=== PATIENT | female | born 1980 | race Caucasian/White ===

== ENCOUNTER 2017-11-10 08:34 | Emergency (ER) | payer SELFPAY, OTHER ==
[2017-11-10 08:48] LABS: URINE HCG POC HCG NEGATIVE (Negative)
[2017-11-10] MEDS: KETOROLAC 30 MG/ML INJ. IV (09:00)
[2017-11-10 09:02] LABS: ADD MAN DIFF? NO
[2017-11-10 09:08] LABS: BASO # 0.1 x10^3/uL (0.0-0.2); BASO % 1 % (0-3); EOS # 0.1 x10^3/uL (0.0-0.7); EOS % 1 % (0-3); HEMOGLOBIN 12.4 g/dL (12.0-15.5); LYMPH # 1.1 x10^3/uL (1.0-4.8); LYMPH % 10 % (24-48); MEAN CORPUSCULAR HEMOGLOBIN 30 pg (25-35); MEAN CORPUSCULAR HGB CONC 33 g/dL (31-37); MEAN CORPUSCULAR VOLUME 89 fL (79-100); MONO # 0.9 x10^3/uL (0.0-1.1); MONO % 8 % (0-9); NEUT # 9.5 x10^3uL (1.8-7.7); NEUT % 82 % (31-73); PLATELET COUNT 187 x10^3/uL (140-400); RED BLOOD COUNT 4.15 x10^6/uL (3.50-5.40); RED CELL DISTRIBUTION WIDTH 12.8 % (11.5-14.5); WHITE BLOOD COUNT 11.6 x10^3/uL (4.0-11.0)
[2017-11-10 09:18] LABS: BILIRUBIN,URINE NEGATIVE (NEG); CLARITY,URINE CLOUDY; COLOR,URINE YELLOW; GLUCOSE,URINE NEGATIVE (NEG); NITRITE,URINE POSITIVE (NEG); PH,URINE 5.5; PROTEIN,URINE 100 mg/dL (NEG-TRACE); UROBILINOGEN,URINE 0.2 mg/dL (0.2 mg/dL)
[2017-11-10 09:29] LABS: BACTERIA,URINE MANY /HPF (0-FEW); RBC,URINE TNTC /HPF (0-2); SQUAMOUS EPITHELIAL CELL,UR MOD /LPF; WBC,URINE TNTC /HPF (0-4)
[2017-11-10 09:31] LABS: ANION GAP 12 (6-14); BLOOD UREA NITROGEN 11 mg/dL (7-20); BUN/CREATININE RATIO 12 (6-20); CALCIUM 8.4 mg/dL (8.5-10.1); CARBON DIOXIDE 25 mmol/L (21-32); CHLORIDE 103 mmol/L (98-107); CREATININE 0.9 mg/dL (0.6-1.0); GFR 71.7; GLUCOSE 99 mg/dL (70-99); POTASSIUM 3.7 mmol/L (3.5-5.1); SODIUM 140 mmol/L (136-145)
[2017-11-10 09:37] LABS: ALBUMIN 3.6 g/dL (3.4-5.0); ALBUMIN/GLOBULIN RATIO 1.1 (1.0-1.7); ALK PHOS 60 U/L (46-116); ALT (SGPT) 9 U/L (14-59); AST (SGOT) 11 U/L (15-37); TOTAL BILIRUBIN 0.7 mg/dL (0.2-1.0)
== END 2017-11-10 10:55 | disposition home or self-care (01) ==
LOC: ER 08:34
DX: N39.0 Urinary tract infection, site not specified (principal)
CPT/HCPCS: 36415; 80053; 81001; 81025; 85025; 87086; 87186; 96365; 96375; 99284-25; J0690; J1885

== ENCOUNTER 2019-02-02 19:21 | Emergency (ER) | payer OTHER ==
[~2019-02-02] VITALS: Ht 170.2 cm; Wt 48.5 kg
[~2019-02-02 19:21] MED LIST: SULF1TAB24 PO
[2019-02-02 19:25] VITALS: BP 115/70
--- NOTE | 2019-02-02 20:13 | PHYS DOC ---
Past Medical History Past Medical History: No Pertinent History Past Surgical History: Tubal ligation Smoking: Cigarettes Alcohol Use: None Drug Use: None Adult General Chief Complaint Chief Complaint: UPPER EXTREMITY PAIN HPI HPI Patient is a 38 year old left arm pain for two days. Patient states the pain is intermittent and she is unable to pinpoint any actions that caused the pain to occur. Reports a pressure sensation in her upper arm with tingling into her hand. The tingling encompasses all her fingers. She rates the pain a 4 out of 10. She he has not attempted anything at home to relieve the pain. Patient reports waking up last night with neck pain and tightness. She denies any chest pain, shortness of breath, lightheadedness, hemoptysis, unilateral leg swelling or cough. Patient does report a significant family history of cardiac disease. Denies known trauma. Review of Systems Review of Systems Constitutional: Denies fever or chills [] Eyes: Denies redness or eye pain [] HENT: Denies nasal congestion or sore throat [] Respiratory: Denies cough or shortness of breath [] Cardiovascular: Denies chest pain or palpitations[] GI: Denies abdominal pain, nausea, vomiting. [] : Denies dysuria or hematuria [] Musculoskeletal: Reports neck, back, and left arm pain and left hand tingling off all five fingers. [] Integument: Denies rash or skin lesions [] Neurologic: Reports left hand tingling, denies headache or focal weakness[] Complete systems were reviewed and found to be within normal limits, except as documented in this note. Current Medications Current Medications Current Medications Medications (Trade) Dose Ordered Sig/[facility] Start Time Stop Time Status Last Admin Dose Admin Dexamethasone (Decadron) 10 mg 1X ONCE 02/02/19 20:15 02/02/19 20:16 DC 02/02/19 20:22 10 MG Allergies Allergies Allergies Coded Allergies Type Severity Reaction Last Updated Verified No Known Drug Allergies 11/10/17 No Physical Exam Physical Exam Constitutional: Well developed, well nourished, no acute distress. [] HENT: Normocephalic, atraumatic, bilateral external ears normal. [] Eyes: EOMI, conjunctiva normal, no discharge. [] Neck: Tightness with neck flexion, no tenderness, supple, no meningeal signs. [ ] Cardiovascular:Heart rate regular rhythm, no murmur [] Lungs & Thorax: Bilateral breath sounds clear to auscultation [] Abdomen: Soft, no tenderness. [] Skin: Warm, dry, no erythema, no rash. [] Back: No tenderness, no CVA tenderness. [] Extremities: No tenderness, no cyanosis, no clubbing, ROM intact, no edema. [] Neurologic: Alert and oriented X 3, normal motor function, normal sensory function. [] Psychologic: Affect normal, mood normal. [] Current Patient Data Vital Signs Vital Signs Date Time Temp Pulse Resp B/P (MAP) Pulse Ox O2 Delivery O2 Flow Rate FiO2 02/02/19 19:25 98.5 108 16 115/70 (85) 99 Room Air 98.5 Lab Values Laboratory Tests Test 02/02/19 20:17 Troponin I Quantitative < 0.017 ng/mL (0.000-0.055) EKG EKG EKG at 2019 showed normal sinus rhythm with rate of [address] elevation[] Radiology/Procedures Radiology/Procedures [] Course & Med Decision Making Course & Med Decision Making 38-year-old female presenting to the emergency department with left arm pain in tingling. Pain is intermittent and she was not rating pain while in the emergency department. On exam there is some muscle tightness in her neck with flexion. No meningeal signs are noted. Labs obtained and posted to chart. Due to family history of cardiac disease a screening EKG and troponin were obtained. Troponin was negative. EKG showed no STEMI or signs of infarction. HEART score 1. HPI and physical exam more consistent for cervical radiculopathy. Patient stable for discharge with outpatient follow-up with PCP/pain management. Pain management referral provided. Discussed findings and plan with patient and family, who acknowledge understanding and agreement. [] Dragon Disclaimer Dragon Disclaimer This electronic medical record was generated, in whole or in part, using a voice recognition dictation system. Departure Departure Impression: Primary Impression: Cervical radiculopathy Disposition: HOME, SELF-CARE Condition: STABLE Referrals: NO PCP (PCP) PROSPER GILLIS MD Patient Instructions: Cervical Radiculopathy, [id number] Scripts Orphenadrine Citrate (ORPHENADRINE CITRATE) 100 Mg Tablet.er 1 TAB PO BID PRN for MUSCLE PAIN, #14 TAB 0 Refills Prov: SAPNA FUENTES DO 02/02/19 Prednisone (PREDNISONE) 20 Mg Tablet 2 TAB PO DAILY for 4 Days, #8 TAB Please start first dose of medication tomorrow, Saturday 02/03 Prov: SAPNA FUENTES DO 02/02/19 SAPNA FUENTES DO Feb 02, 2019 20:13
[2019-02-02] MEDS ORDERED: DEXAMETHASONE 4 MG TABLET PO ONE (20:15)
[2019-02-02] MEDS ORDERED: ORPH100T PO (20:55)
[2019-02-02] MEDS ORDERED: PRED20TA PO (20:55)
--- NOTE | 2019-02-03 08:28 | EKG ---
[facility] [address] [place] [address] Test Date: 2019-02-02 Test Time: 20:20:41 Pat Name: EMRE MAKI Department: Room: Gender: F [employer]: : 1980 Requested By: SAPNA FUENTES Order Number: [id number] Reading MD: Galen Cooper MD Measurements Intervals Louann Rate: 95 P: 77 MN: 148 QRS: 92 QRSD: 84 T: 51 QT: 340 QTc: 430 Interpretive Statements SR NON-SPECIFIC ST/T CHANGES Electronically Signed On 02-07-2019 9:40:03 CDT by Galen Cooper MD
== END 2019-02-02 21:50 | disposition home or self-care (01) ==
LOC: ER 19:21
DX: M54.12 Radiculopathy, cervical region (principal); F17.210 Nicotine dependence, cigarettes, uncomplicated; R94.31 Abnormal electrocardiogram [ECG] [EKG]
CPT/HCPCS: 36415; 84484; 93005; 99284; J8540

== ENCOUNTER 2019-12-05 11:13 | Emergency (ER) | payer OTHER ==
[~2019-12-05] VITALS: Ht 170.2 cm; Wt 50.0 kg
[~2019-12-05 11:13] MED LIST changes: +ORPH100T PO; +PRED20TA PO
[2019-12-05 12:02] LABS: U PREG PATIENT NEGATIVE (NEG)
[2019-12-05] MEDS ORDERED: IV NORMAL SALINE 1000ML BAG 1,000 ML IV SCH (12:07)
[2019-12-05] MEDS ORDERED: KETOROLAC 30 MG/ML VIAL. IV ONE (12:15)
--- NOTE | 2019-12-05 12:16 | PHYS DOC ---
Past Medical History Past Medical History: No Pertinent History Past Surgical History: Tubal ligation Smoking Status: Current Every Day Smoker Alcohol Use: None Drug Use: None Adult General Chief Complaint Chief Complaint: ABDOMINAL PAIN HPI HPI Patient is a 39 year old female without history of medical problem who presents with complaint of abdominal pain. Patient complaining of periumbilical sharp pain without radiation since 2 AM today she woke up to go to the bathroom as a constant pain without nausea and vomiting, fever and chills, urinary symptoms, diarrhea and constipation, vaginal bleeding or discharge, history of the same pain. Patient states the pain was 10 over 10 that improved partially with ibuprofen 800 mg she took at 0200 but increasing to 10 over 10 and again. Review of Systems Review of Systems Constitutional: Denies fever or chills [] Eyes: Denies change in visual acuity, redness, or eye pain [] HENT: Denies nasal congestion or sore throat [] Respiratory: Denies cough or shortness of breath [] Cardiovascular: No additional information not addressed in HPI [] GI: Reports abdominal pain, denies nausea, vomiting, bloody stools or diarrhea [] : Denies dysuria or hematuria [] Musculoskeletal: Denies back pain or joint pain [] Integument: Denies rash or skin lesions [] Neurologic: Denies headache, focal weakness or sensory changes [] Endocrine: Denies polyuria or polydipsia [] All other systems were reviewed and found to be within normal limits, except as documented in this note. Current Medications Current Medications Current Medications Medications (Trade) Dose Ordered Sig/Ron Start Time Stop Time Status Last Admin Dose Admin Ketorolac Tromethamine (Toradol 30mg Vial) 30 mg 1X ONCE 12/05/19 12:15 12/05/19 12:16 DC 12/05/19 12:24 30 MG Sodium Chloride 1,000 ml @ 1,000 mls/hr Q1H 12/05/19 12:07 12/05/19 13:06 DC 12/05/19 12:24 1,000 MLS/HR Allergies Allergies Allergies Coded Allergies Type Severity Reaction Last Updated Verified No Known Drug Allergies 11/10/17 No Physical Exam Physical Exam Constitutional: Well developed, well nourished, mild distress, non-toxic appearance. [] HENT: Normocephalic, atraumatic. Eyes: PERRLA, EOMI, conjunctiva normal, no discharge. [] Neck: Normal range of motion, no tenderness, supple, no stridor. [] Cardiovascular:Heart rate regular rhythm, no murmur [] Lungs & Thorax: Bilateral breath sounds clear to auscultation [] Abdomen: Bowel sounds normal, guarding in per medical area ,soft, no tenderness, no masses, no pulsatile masses. [] Skin: Warm, dry, no erythema, no rash. [] Back: No tenderness, no CVA tenderness. [] Extremities: No tenderness, no cyanosis, no clubbing, ROM intact, no edema. [] Neurologic: Alert and oriented X 3, no focal deficits noted. [] Psychologic: Affect anxious and tearful, judgement normal, mood normal. [] Current Patient Data Vital Signs Vital Signs Date Time Temp Pulse Resp B/P (MAP) Pulse Ox O2 Delivery O2 Flow Rate FiO2 12/05/19 11:53 97.4 74 16 104/63 (77) 95 Room Air 97.4 Lab Values Laboratory Tests Test 12/05/19 11:43 12/05/19 11:47 Urine Collection Type Unknown Urine Color Yellow Urine Clarity Cloudy Urine pH 6.0 Urine Specific Andrews 1.015 Urine Protein Negative mg/dL (NEG-TRACE) Urine Glucose (UA) Negative mg/dL (NEG) Urine Ketones (Stick) Negative mg/dL (NEG) Urine Blood Large (NEG) Urine Nitrite Positive (NEG) Urine Bilirubin Negative (NEG) Urine Urobilinogen Dipstick 1.0 mg/dL (0.2 mg/dL) Urine Leukocyte Esterase Moderate (NEG) Urine RBC 3-5 /HPF (0-2) Urine WBC 5-10 /HPF (0-4) Urine Squamous Epithelial Cells Mod /LPF Urine Bacteria Many /HPF (0-FEW) Urine Mucus Slight /LPF Urine Test Negative (NEG) White Blood Count 8.1 x10^3/uL (4.0-11.0) Red Blood Count 4.47 x10^6/uL (3.50-5.40) Hemoglobin 13.8 g/dL (12.0-15.5) Hematocrit 41.0 % (36.0-47.0) Mean Corpuscular Volume 92 fL (79-100) Mean Corpuscular Hemoglobin 31 pg (25-35) Mean Corpuscular Hemoglobin Concent 34 g/dL (31-37) Red Cell Distribution Width 13.1 % (11.5-14.5) Platelet Count 186 x10^3/uL (140-400) Neutrophils (%) (Auto) 65 % (31-73) Lymphocytes (%) (Auto) 25 % (24-48) Monocytes (%) (Auto) 5 % (0-9) Eosinophils (%) (Auto) 5 % (0-3) H Basophils (%) (Auto) 0 % (0-3) Neutrophils # (Auto) 5.2 x10^3/uL (1.8-7.7) Lymphocytes # (Auto) 2.1 x10^3/uL (1.0-4.8) Monocytes # (Auto) 0.4 x10^3/uL (0.0-1.1) Eosinophils # (Auto) 0.4 x10^3/uL (0.0-0.7) Basophils # (Auto) 0.0 x10^3/uL (0.0-0.2) Sodium Level 137 mmol/L (136-145) Potassium Level 3.6 mmol/L (3.5-5.1) Chloride Level 103 mmol/L (98-107) Carbon Dioxide Level 28 mmol/L (21-32) Anion Gap 6 (6-14) Blood Urea Nitrogen 9 mg/dL (7-20) Creatinine 0.9 mg/dL (0.6-1.0) Estimated GFR (Cockcroft-Gault) 70.5 BUN/Creatinine Ratio 10 (6-20) Glucose Level 108 mg/dL (70-99) H Calcium Level 8.5 mg/dL (8.5-10.1) Total Bilirubin 0.6 mg/dL (0.2-1.0) Aspartate Amino Transferase (AST) 10 U/L (15-37) L Alanine Aminotransferase (ALT) 7 U/L (14-59) L Alkaline Phosphatase 59 U/L (46-116) Total Protein 6.9 g/dL (6.4-8.2) Albumin 3.9 g/dL (3.4-5.0) Albumin/Globulin Ratio 1.3 (1.0-1.7) Lipase 104 U/L (73-393) Laboratory Tests 12/05/19 11:47 Laboratory Tests 12/05/19 11:47 EKG EKG [] Radiology/Procedures Radiology/Procedures [facility] [address] [place] [address] IMAGING REPORT Signed PATIENT: EMRE MAKI ACCOUNT: [id number] : 1980 LOCATION: ER AGE: 39 SEX: F EXAM STATUS: REG ER ORD. PHYSICIAN: SAGRARIO ARNOLD MD REASON: periumbilical pain PROCEDURE: CT ABDOMEN PELVIS WO CONTRAST PQRS Compliance Statement: One or more of the following individualized dose reduction techniques were utilized for this examination: 1. Automated exposure control 2. Adjustment of the mA and/or kV according to patient size 3. Use of iterative reconstruction technique CT ABDOMEN PELVIS WO CONTRAST Clinical Indication: Upper abdominal pain since 2:00 AM. Comparison: None. Technique: Helical CT imaging of the abdomen and pelvis is performed without IV or oral contrast. Findings: Evaluation of solid organs and bowel is limited without oral and IV contrast, decreasing sensitivity for detection of pathology. Calcified granuloma left lower lobe. Cardiac size normal. Probable normal variant Aria lobe. Liver is homogeneous. Gallbladder, spleen, pancreas, adrenal glands, and abdominal aorta caliber are normal. No renal calculus. No hydronephrosis. Stomach unremarkable. No dilated small bowel. The appendix is normal. No colon wall thickening is seen. There is scattered stool in the colon. No abdominal adenopathy or free fluid. Anteverted uterus. Mild pelvic free fluid. Left adnexal cyst measures 4.3 cm. No acute bone abnormality. IMPRESSION: 1. Mild pelvic free fluid. Small left adnexal cyst. Findings may be physiologic. 2. There is otherwise no acute abdominal or pelvic abnormality. Electronically signed by: Zeyad Warren MD (12/05/2019 12:49 PM) [id number] DICTATED and SIGNED BY: ZEYAD WARREN MD DATE: 12/05/19 1249 Course & Med Decision Making Course & Med Decision Making Pertinent Labs and Imaging studies reviewed. (See chart for details) discharge: I've spoken with the patient and/or caregivers. I've explained the patient's condition, diagnosis and treatment plan based on information available to me at this time. I've answered the patient's and/or caregivers questions and addressed any concerns. The patient and/or caregivers have a good understanding the patient's diagnosis, condition and treatment plan as can be expected at this point. Vital signs have been stabilized. The patient's condition is stable for discharge from the emergency department. The patient will pursue further outpatient evaluation with her primary care provider or other designated consulting physician as outlined in the discharge instructions. Patient and/or caregivers are agreeable to this plan of care and follow-up instructions have been explained in detail. The patient and/or caregivers have received these instructions in written format and expressed unde rstanding of these discharge instructions. The patient and her caregivers are aware that if any significant change in condition or worsening of symptoms should prompt him to immediately return to this of the closest emergency department. If an emergent department is not readily available I would en courage him to call 911. [place] Disclaimer Dragon Disclaimer This electronic medical record was generated, in whole or in part, using a voice recognition dictation system. Departure Departure Impression: Primary Impression: Urinary tract infection Additional Impression: Abdominal pain Disposition: HOME, SELF-CARE (at 1359) Condition: IMPROVED Referrals: KATHERINE CANSECO MD (PCP) Patient Instructions: Abdominal Pain, Mittelschmerz, Urinary Tract Infection Additional Instructions: Drink plenty of liquids Follow-up with your primary care physician in 3-5 days Return to ER if not getting better Scripts Tramadol Hcl (ULTRAM) 50 Mg Tablet 50 MG PO Q6HRS PRN for PAIN, #14 TAB 0 Refills Prov: SAGRARIO ARNOLD MD 12/05/19 Ciprofloxacin Hcl (CIPRO) 250 Mg Tablet 1 TAB PO BID for infection, #6 TAB Prov: SAGRARIO ARNOLD MD 12/05/19 Problem Qualifiers Primary Impression: Urinary tract infection Urinary tract infection type: acute cystitis Hematuria presence: with hematuria Qualified Codes: N30.01 - Acute cystitis with hematuria Additional Impression: Abdominal pain Abdominal location: periumbilical Qualified Codes: R10.33 - Periumbilical pain SAGRARIO ARNOLD MD Dec 05, 2019 12:16
[2019-12-05 12:23] LABS: BASO % 0 % (0-3); EOS # 0.4 x10^3/uL (0.0-0.7); EOS % 5 % (0-3); HEMOGLOBIN 13.8 g/dL (12.0-15.5); LYMPH # 2.1 x10^3/uL (1.0-4.8); LYMPH % 25 % (24-48); MEAN CORPUSCULAR HEMOGLOBIN 31 pg (25-35); MEAN CORPUSCULAR HGB CONC 34 g/dL (31-37); MEAN CORPUSCULAR VOLUME 92 fL (79-100); MONO # 0.4 x10^3/uL (0.0-1.1); MONO % 5 % (0-9); NEUT # 5.2 x10^3/uL (1.8-7.7); NEUT % 65 % (31-73); PLATELET COUNT 186 x10^3/uL (140-400); RED BLOOD COUNT 4.47 x10^6/uL (3.50-5.40); RED CELL DISTRIBUTION WIDTH 13.1 % (11.5-14.5); WHITE BLOOD COUNT 8.1 x10^3/uL (4.0-11.0)
[2019-12-05 12:27] LABS: CALCIUM 8.5 mg/dL (8.5-10.1); CREATININE 0.9 mg/dL (0.6-1.0); GFR 70.5; POTASSIUM 3.6 mmol/L (3.5-5.1)
[2019-12-05 12:33] LABS: ALBUMIN 3.9 g/dL (3.4-5.0); ALBUMIN/GLOBULIN RATIO 1.3 (1.0-1.7); TOTAL BILIRUBIN 0.6 mg/dL (0.2-1.0); TOTAL PROTEIN 6.9 g/dL (6.4-8.2)
--- NOTE | 2019-12-05 12:52 | RAD ---
PQRS Compliance Statement: One or more of the following individualized dose reduction techniques were utilized for this examination: 1. Automated exposure control 2. Adjustment of the mA and/or kV according to patient size 3. Use of iterative reconstruction technique CT ABDOMEN PELVIS WO CONTRAST Clinical Indication: Upper abdominal pain since 2:00 AM. Comparison: None. Technique: Helical CT imaging of the abdomen and pelvis is performed without IV or oral contrast. Findings: Evaluation of solid organs and bowel is limited without oral and IV contrast, decreasing sensitivity for detection of pathology. Calcified granuloma left lower lobe. Cardiac size normal. Probable normal variant Aria lobe. Liver is homogeneous. Gallbladder, spleen, pancreas, adrenal glands, and abdominal aorta caliber are normal. No renal calculus. No hydronephrosis. Stomach unremarkable. No dilated small bowel. The appendix is normal. No colon wall thickening is seen. There is scattered stool in the colon. No abdominal adenopathy or free fluid. Anteverted uterus. Mild pelvic free fluid. Left adnexal cyst measures 4.3 cm. No acute bone abnormality. IMPRESSION: 1. Mild pelvic free fluid. Small left adnexal cyst. Findings may be physiologic. 2. There is otherwise no acute abdominal or pelvic abnormality. Electronically signed by: Zeyad Warren MD (12/05/2019 12:49 PM) [id number]
[2019-12-05 13:30] LABS: BILIRUBIN,URINE NEGATIVE (NEG); CLARITY,URINE CLOUDY; COLOR,URINE YELLOW; NITRITE,URINE POSITIVE (NEG); PROTEIN,URINE NEGATIVE (NEG-TRACE)
[2019-12-05 13:45] VITALS: BP 97/65
[2019-12-05 13:45] LABS: SQUAMOUS EPITHELIAL CELL,UR MOD /LPF
[2019-12-05 13:46] LABS: BACTERIA,URINE MANY /HPF (0-FEW)
[2019-12-05] MEDS ORDERED: CIPR250T30 PO (14:03)
[2019-12-05] MEDS ORDERED: TRAM-48 PO (14:03)
== END 2019-12-05 14:20 | disposition home or self-care (01) ==
LOC: ER 11:13
DX: N30.01 Acute cystitis with hematuria (principal); F17.200 Nicotine dependence, unspecified, uncomplicated; Z98.51 Tubal ligation status
CPT/HCPCS: 36415; 74176; 80053; 81001; 81025; 83690; 85025; 87086; 87186; 96374; 99285; J1885; J7030